=== PATIENT | female | born 1955 | race Native Hawaiian/Other Pacific Islander ===

== ENCOUNTER 2017-01-21 10:04 | Outpatient (CLI) | payer BC ==
[~2017-01-21 10:04] MED LIST: BACTROBAN2 % EX; BONTRIL PO; CELEXA20 MG OR; ESTRA OR; FLONASE0.05 %; LEVAQUIN500 MG OR; LUNESTA2 MG OR; NORETH OR; OMEP20CA PO; PRISTIQ50 MG OR
== END 2017-01-21 10:14 | disposition short-term general hospital (02) ==
LOC: AMB 10:04
DX: R22.0 Localized swelling, mass and lump, head (principal); R42 Dizziness and giddiness
CPT/HCPCS: A0425; A0427

== ENCOUNTER 2017-01-21 10:15 | Emergency (ER) | payer BC ==
[~2017-01-21] VITALS: Ht 162.6 cm; Wt 108.9 kg
[2017-01-21 10:35] LABS: PLATELET COUNT 288 K/uL (152-353)
[2017-01-21 10:42] LABS: POTASSIUM 3.4 mmol/L (3.6-5.2)
[2017-01-21 12:00] VITALS: TEMP 99
[2017-01-21 14:00] VITALS: BP 153/76
== END 2017-01-21 14:30 | disposition home or self-care (01) ==
LOC: ED 10:15
DX: L03.211 Cellulitis of face (principal)
CPT/HCPCS: 80053; 85027; 85651; 86039; 96365; 96375; 99284; J0696; J1100; J2405

== ENCOUNTER 2021-03-21 11:33 | Outpatient (CLI) | payer BC | END 2021-03-21 19:25 | disposition home or self-care (01) | LOC: RAD 11:33 | PROVIDERS: ATTEND Nurse Practitioner Family | DX: E55.9 Vitamin D deficiency, unspecified (principal); E56.8 Deficiency of other vitamins; M85.89 Other specified disorders of bone density and structure, multiple sites; Z79.899 Other long term (current) drug therapy ==

== ENCOUNTER 2021-11-05 09:47 | Outpatient (CLI) | payer BC | END 2021-11-05 18:51 | disposition home or self-care (01) | LOC: RAD 09:47 | PROVIDERS: ATTEND Nurse Practitioner Family | DX: M06.4 Inflammatory polyarthropathy (principal); M32.8 Other forms of systemic lupus erythematosus; M35.01 Sjogren syndrome with keratoconjunctivitis; M85.89 Other specified disorders of bone density and structure, multiple sites; Z79.899 Other long term (current) drug therapy ==

== ENCOUNTER 2021-11-19 11:39 | Outpatient (CLI) | payer BC | END 2021-11-19 19:22 | disposition home or self-care (01) | LOC: RESP 11:39 | PROVIDERS: ATTEND Nurse Practitioner Family | DX: M06.4 Inflammatory polyarthropathy (principal); M32.8 Other forms of systemic lupus erythematosus; M35.01 Sjogren syndrome with keratoconjunctivitis; M85.89 Other specified disorders of bone density and structure, multiple sites; Z79.899 Other long term (current) drug therapy ==